=== PATIENT | male | born 1990 | race Caucasian/White ===

== ENCOUNTER 2019-03-31 16:45 | Emergency (ER) | payer BC ==
[2019-03-31] MEDS ORDERED: NA CHLORIDE 0.9% 1,000 ML ONE ×2 (17:41→19:46)
[2019-03-31] MEDS ORDERED: ONDANSETRON 4 MG/2 ML VIAL ONE (17:41)
[2019-03-31 18:09] LABS: Absolute Lymphocytes (CBC) 0.5 K/uL (0.7-4.9); Basophils % 0.2 % (0-1.3); Hematocrit 42.5 % (39.6-49.0); Lymphocytes % 4.9 % (15.3-44.8); MPV 8.9 fL (7.6-11.3); RBC Red Blood Cell Count 4.85 M/uL (4.33-5.43)
[2019-03-31 18:30] LABS: Albumin 3.9 g/dL (3.4-5.0); Bilirubin Direct 0.4 mg/dL (0-0.2); Bilirubin Total 1.9 mg/dL (0.2-1.0); Potassium 3.5 mmol/L (3.5-5.1); Protein, Total 7.8 g/dL (6.4-8.2)
[2019-03-31] MEDS ORDERED: KETOROLAC 30 MG/ML INJ ONE (18:48)
[2019-03-31 19:33] LABS: Blood Morphology Comment NOTED (NOT SEEN); Platelet Estimate ADEQ; Poikilocytosis 1+; Urine White Blood Cell Casts OK
--- NOTE | 2019-03-31 20:35 | ER ---
Nurse's Notes [facility] Name: Duarte Mendes Jr Age: 28 yrs Sex: Male : 1990 Arrival Date: 03/31/2019 Time: 16:46 Bed 25 Private MD: Josefa Ernst C Diagnosis: Viral agents as the cause of diseases classified elsewhere Presentation: 03/31 17:34 Presenting complaint: Patient states: Fever, vomiting, body aches and fever that aj1 started this morning. Denies diarrhea. Transition of care: patient was not received from another setting of care. Onset of symptoms was March 31, 2019. Risk Assessment: Do you want to hurt yourself or someone else? Patient reports no desire to harm self or others. Initial Sepsis Screen: Does the patient meet any 2 criteria? HR > 90 bpm. No. Patient's initial sepsis screen is negative. Does the patient have a suspected source of infection? Yes: Acute abdominal pain. Care prior to arrival: None. 17:34 Method Of Arrival: Ambulatory aj 17:34 Acuity: JJ 3 aj1 Triage Assessment: 17:36 General: Appears in no apparent distress. comfortable, Behavior is calm, cooperative, aj1 appropriate for age. Pain: Complains of pain in generalized body aches. GI: Reports nausea, vomiting. Historical: - Allergies: 17:36 No Known Allergies; aj1 - Home Meds: 17:36 unknown crohns medication [Active]; aj1 - PMHx: 17:36 Bipolar disorder; Crohn's; aj1 - PSHx: 17:36 surgery for broken jaw; aj1 - Immunization history:: Flu vaccine is not up to date. - Social history:: Smoking status: Patient uses tobacco products, 1/3 PPD. - Ebola Screening: : Patient denies travel to an Ebola-affected area in the 21 days before illness onset. Screenin:45 Abuse screen: Denies threats or abuse. Denies injuries from another. Nutritional aj1 screening: No deficits noted. Tuberculosis screening: No symptoms or risk factors identified. 21:05 Fall Risk None identified. aj1 Assessment: 17:45 General: Appears in no apparent distress. uncomfortable, Behavior is calm, cooperative, aj1 appropriate for age. Pain: Complains of pain in generalized body aches. Neuro: Level of Consciousness is awake, alert, obeys commands, Oriented to person, place, time, situation. Cardiovascular: Patient's skin is warm and dry. Respiratory: Airway is patent Respiratory effort is even, unlabored, Respiratory pattern is regular, symmetrical. GI: Abdomen is non-distended, Bowel sounds present X 4 quads. Abd is soft and non tender X 4 quads. : No signs and/or symptoms were reported regarding the genitourinary system. EENT: No signs and/or symptoms were reported regarding the EENT system. Derm: No signs and/or symptoms reported regarding the dermatologic system. Skin is normal, flushed. Musculoskeletal: No signs and/or symptoms reported regarding the musculoskeletal system. Circulation, motion, and sensation intact. 18:45 Reassessment: Patient appears in no apparent distress at this time. No changes from [facility] previously documented assessment. Patient and/or family updated on plan of care and expected duration. Pain level reassessed. Patient is alert, oriented x 3, equal unlabored respirations, skin warm/dry/pink. 19:45 Reassessment: Patient appears in no apparent distress at this time. No changes from aj1 previously documented assessment. Patient and/or family updated on plan of care and expected duration. Pain level reassessed. Patient is alert, oriented x 3, equal unlabored respirations, skin warm/dry/pink. 21:03 Reassessment: Patient appears in no apparent distress at this time. No changes from 1 previously documented assessment. Patient and/or family updated on plan of care and expected duration. Pain level reassessed. Patient is alert, oriented x 3, equal unlabored respirations, skin warm/dry/pink. Patient states feeling better. Vital Signs: 17:36 BP 134 / 78; Pulse 114; Resp 18; Temp 99.7; Pulse Ox 99% on R/A; Weight 120.2 kg (R); aj1 Height 6 ft. 5 in. (195.58 cm) (R); 18:30 BP 125 / 62; Pulse 108; Resp 20; Pulse Ox 98% on R/A; aj1 19:30 BP 134 / 78; Pulse 112; Resp 20; Pulse Ox 100% ; aj1 20:21 BP 116 / 64; Pulse 101; Resp 18; Pulse Ox 96% on R/A; aj1 21:03 BP 112 / 72; Pulse 96; Resp 18; Pulse Ox 97% on R/A; aj1 17:36 Body Mass Index 31.42 (120.20 kg, 195.58 cm) aj1 ED Course: 16:46 Patient arrived in ED. as 16:46 Josefa Ernst MD is Private Physician. as 17:17 Rahat Dumont MD is Attending Physician. tw4 17:34 Marleni Mayen, RN is Primary Nurse. aj1 17:35 Triage completed. aj1 17:36 Arm band placed on. aj1 17:45 Patient has correct armband on for positive identification. Bed in low position. Call aj1 light in reach. Side rails up X 1. 17:45 No provider procedures requiring assistance completed. aj1 17:55 Inserted saline lock: 20 gauge in left antecubital area, using aseptic technique. Blood aj1 collected. 18:03 Flu Sent. jp3 18:03 Flu and/or RSV swab sent to lab. jp3 18:27 CBC Smear Scan Sent. jp3 20:33 Josefa Ernst MD is Referral Physician. tw4 21:04 IV discontinued, intact, bleeding controlled, No redness/swelling at site. Pressure aj1 dressing applied. Administered Medications: 17:45 Drug: NS 0.9% 1000 ml Route: IV; Rate: 1 bolus; Site: left forearm; rv 18:55 Follow up: IV Status: Completed infusion; IV Intake: 1000ml aj1 17:45 Drug: Zofran 4 mg Route: IVP; Site: left forearm; rv 18:55 Follow up: Response: No adverse reaction aj1 18:55 Drug: TORadol 30 mg Route: IVP; Site: left antecubital; aj1 21:06 Follow up: Response: No adverse reaction aj1 19:46 Drug: NS 0.9% 1000 ml Route: IV; Rate: 1 bolus; Site: left antecubital; aj1 21:06 Follow up: IV Status: Completed infusion; IV Intake: 1000ml aj1 Intake: 18:55 IV: 1000ml; Total: 1000ml. aj1 21:06 IV: 1000ml; Total: 2000ml. aj1 Outcome: 20:34 Discharge ordered by . tw4 21:05 Discharged to home ambulatory. aj1 21:05 Condition: good 21:05 Discharge instructions given to patient, Instructed on discharge instructions, follow up and referral plans. medication usage, Demonstrated understanding of instructions, follow-up care, medications. 21:07 Patient left the ED. aj1 Signatures: Marleni Mayen, RN RN aj1 Gina Flores Terrence, MD MD tw4 Rickey Hendrickson RN RN rv Fabricio [place] jp3
--- NOTE | 2019-03-31 20:36 | EDPHYS ---
Physician Documentation [facility] Name: Duarte Mendes Jr Age: 28 yrs Sex: Male : 1990 Arrival Date: 03/31/2019 Time: 16:46 Bed 25 Private MD: Josefa Ernst C ED Physician Rahat Dumont HPI: 03/31 18:52 This 28 yrs old Male presents to ER via Ambulatory with complaints of Fever, tw4 Vomiting, Abdominal Pain. 18:52 The patient reports fever, not measured (subjective). Onset: The symptoms/episode tw4 began/occurred 2 day(s) ago. Modifying factors: there are no obvious modifying factors. Associated signs and symptoms: Pertinent positives: abdominal pain, arthralgias, chills, nausea, vomiting, Pertinent negatives:. Severity of symptoms: At their worst the symptoms were moderate in the emergency department the symptoms are unchanged. Historical: - Allergies: 17:36 No Known Allergies; aj1 - Home Meds: 17:36 unknown crohns medication [Active]; aj1 - PMHx: 17:36 Bipolar disorder; Crohn's; aj1 - PSHx: 17:36 surgery for broken jaw; aj1 - Immunization history:: Flu vaccine is not up to date. - Social history:: Smoking status: Patient uses tobacco products, 1/3 PPD. - Ebola Screening: : Patient denies travel to an Ebola-affected area in the 21 days before illness onset. ROS: 18:52 Back: Negative for injury and pain. tw4 18:52 Constitutional: Positive for fever. 18:52 Abdomen/GI: Positive for abdominal pain, nausea and vomiting, abdominal cramps, abdominal distension, Negative for diarrhea. Exam: 18:55 Constitutional: This is a well developed, well nourished patient who is awake, alert, tw4 and in no acute distress. Head/Face: Normocephalic, atraumatic. Chest/axilla: Normal chest wall appearance and motion. Nontender with no deformity. No lesions are appreciated. Cardiovascular: Regular rate and rhythm with a normal S1 and S2. No gallops, murmurs, or rubs. Normal PMI, no JVD. No pulse deficits. Respiratory: Lungs have equal breath sounds bilaterally, clear to auscultation and percussion. No rales, rhonchi or wheezes noted. No increased work of breathing, no retractions or nasal flaring. Abdomen/GI: Soft, non-tender, with normal bowel sounds. No distension or tympany. No guarding or rebound. No evidence of tenderness throughout. Back: No spinal tenderness. No costovertebral tenderness. Full range of motion. MS/ Extremity: Pulses equal, no cyanosis. Neurovascular intact. Full, normal range of motion. Neuro: Awake and alert, GCS 15, oriented to person, place, time, and situation. Cranial nerves II-XII grossly intact. Motor strength 5/5 in all extremities. Sensory grossly intact. Cerebellar exam normal. Normal gait. Vital Signs: 17:36 BP 134 / 78; Pulse 114; Resp 18; Temp 99.7; Pulse Ox 99% on R/A; Weight 120.2 kg (R); aj1 Height 6 ft. 5 in. (195.58 cm) (R); 18:30 BP 125 / 62; Pulse 108; Resp 20; Pulse Ox 98% on R/A; aj1 19:30 BP 134 / 78; Pulse 112; Resp 20; Pulse Ox 100% ; aj1 20:21 BP 116 / 64; Pulse 101; Resp 18; Pulse Ox 96% on R/A; aj1 21:03 BP 112 / 72; Pulse 96; Resp 18; Pulse Ox 97% on R/A; aj1 17:36 Body Mass Index 31.42 (120.20 kg, 195.58 cm) [facility] MDM: 17:45 Patient medically screened. tw4 18:55 Data reviewed: vital signs, nurses notes. tw4 20:29 Differential diagnosis: viral Infection, bacterial infection, URI, bronchitis. Data tw4 reviewed: lab test result(s), CBC, white blood cell count, hemoglobin, hematocrit, platelets, electrolytes, sodium, potassium, chloride, serum bicarbonate, BUN, creatinine, serum glucose, Flu: negative. Data interpreted: telemetry monitor: rhythm is sinus tachycardia, Pulse oximetry: Interpretation: normal. Counseling: I had a detailed discussion with the patient and/or guardian regarding: the historical points, exam findings, and any diagnostic results supporting the discharge/admit diagnosis, lab results. 03/31 17:19 Order name: Basic Metabolic Panel; Complete Time: 19:42 tw4 03/31 19:42 Interpretation: GLUC 109; GFR 89. tw4 01/06 17:19 Order name: CBC with Diff; Complete Time: 19:42 [facility] 03/31 19:42 Interpretation: Normal except: BERNADINE% 90.0; LYM% 4.9; NEUT A 8.3. 03/31 17:19 Order name: Creatinine for Radiology; Complete Time: 19:42 [facility] 03/31 17:19 Order name: Hepatic Function; Complete Time: 19:42 [facility] 03/31 19:43 Interpretation: Normal except: AST 38; ALT 108; BILIT 1.9; BILID 0.4; GLOB 3.9; A/G 1.0.03/31 17:19 Order name: Lipase; Complete Time: 19:42 [facility] 03/31 19:43 Interpretation: Within normal limits: LIP 124. 03/31 17:38 Order name: Flu; Complete Time: 19:42 [facility] 03/31 19:43 Interpretation: Within normal limits. 03/31 17:19 Order name: IV Saline Lock; Complete Time: 17:49 [facility] 03/31 17:19 Order name: Labs collected and sent; Complete Time: 17:49 03/31 18:22 Order name: CBC Smear Scan; Complete Time: 19:42 EDMS Administered Medications: 17:45 Drug: NS 0.9% 1000 ml Route: IV; Rate: 1 bolus; Site: left forearm; rv 18:55 Follow up: IV Status: Completed infusion; IV Intake: 1000ml aj1 17:45 Drug: Zofran 4 mg Route: IVP; Site: left forearm; rv 18:55 Follow up: Response: No adverse reaction aj1 18:55 Drug: TORadol 30 mg Route: IVP; Site: left antecubital; aj1 21:06 Follow up: Response: No adverse reaction aj1 19:46 Drug: NS 0.9% 1000 ml Route: IV; Rate: 1 bolus; Site: left antecubital; aj1 21:06 Follow up: IV Status: Completed infusion; IV Intake: 1000ml aj1 Disposition: 03/31/19 20:34 Discharged to Home. Impression: Viral agents as the cause of diseases classified elsewhere. - Condition is Stable. - Discharge Instructions: Viral Gastroenteritis, Adult. - Prescriptions for Bentyl 20 mg Oral Tablet - take 1 tablet by ORAL route every 6 hours As needed; 20 tablet. Zofran 4 mg Oral Tablet - take 1 tablet by ORAL route every 12 hours As needed; 6 tablet. - Work release form, Medication Reconciliation Form, Thank You Letter, Antibiotic Education, Prescription Opioid Use form. - Follow up: Josefa Ernst MD; When: Upon discharge from the Emergency Department; Reason: Recheck today's complaints, Continuance of care. - Problem is new. - Symptoms have improved. Signatures: Dispatcher [employer] EDMarleni Del Cid RN RN aj1 Rahat Dumont MD MD tw4 Rickey Hendrickson RN RN rv Corrections: (The following items were deleted from the chart) 21:07 20:34 03/31/2019 20:34 Discharged to Home. Impression: Viral agents as the cause of aj1 diseases classified elsewhere. Condition is Stable. Forms are Medication Reconciliation Form, Thank You Letter, Antibiotic Education, Prescription Opioid Use. Follow up: Josefa Ernst; When: Upon discharge from the Emergency Department; Reason: Recheck today's complaints, Continuance of care. Problem is new. Symptoms have improved. tw4
[2019-03-31 21:17] VITALS: TEMP 99.7
[2019-03-31 21:22] VITALS: BP 112/72; O2SAT 97
== END 2019-03-31 21:07 | disposition home or self-care (01) ==
LOC: ER 16:45
DX: B97.89 Other viral agents as the cause of diseases classified elsewhere (principal)
CPT/HCPCS: 96361; 85025; 80048; 36415; 80076; 83690; 87804 ×2; 96375; 96374; 99284; J7030 ×2; J2405